=== PATIENT | female | born 1980 | race Caucasian/White ===

== ENCOUNTER 2017-08-08 15:49 | Outpatient (CLI) | END 2017-08-08 22:15 | disposition home or self-care (01) ==

== ENCOUNTER 2017-10-17 12:39 | Inpatient (IN) | END 2017-10-20 18:05 | disposition home or self-care (01) | DRG 766 ==

== ENCOUNTER 2017-11-14 14:39 | Emergency (ER) | END 2017-11-14 18:02 | disposition home or self-care (01) ==